=== PATIENT | female | born 1970 | race Hispanic/Latino ===

== ENCOUNTER → 2023-05-14 09:46 | Outpatient (REF) | payer OTHER, SELFPAY ==
[2023-05-14 11:04] LABS: ALT (SGPT) 57 U/L (0-35); AST (SGOT) 35 U/L (14-36); Albumin 4.3 g/dl (3.5-5.0); Alkaline Phosphatase 112 U/L (38-126); Blood Urea Nitrogen 15 mg/dl (7-17); Calcium 9.1 mg/dl (8.4-10.2); Carbon Dioxide 28 mmol/L (22-30); Chloride 104 mmol/L (98-107); GGTP 42 U/L (12-43); Glucose 99 mg/dl (70-99); HDL Cholesterol 47 mg/dl; LDL Cholesterol, Calculated 53 mg/dl; Potassium 4.2 mmol/L (3.5-5.1); Sodium 136 mmol/L (135-145); Total Bilirubin 0.6 mg/dl (0.2-1.3); Total Cholesterol 145 mg/dl (50-199); Total Protein 7.3 g/dl (6.3-8.2); Triglyceride 227 mg/dl (10-149); Very Low Density Lipoprotein 45 mg/dl (0-30); eGFR > 60.00
[2023-05-14 11:54] LABS: Microalbumin/creatinine Ratio 18.1 mg/g
[2023-05-14 12:13] LABS: Glycohemoglobin (HgbA1c) 6.6 % (4.0-5.6)
== END ==
LOC: REG 09:46
PROVIDERS: ATTENDING PHYSICIAN Nurse Practitioner Adult Health
DX: E11.9 Type 2 diabetes mellitus without complications (principal); K76.0 Fatty (change of) liver, not elsewhere classified; E78.2 Mixed hyperlipidemia; R80.9 Proteinuria, unspecified
CPT/HCPCS: 36415; 80053; 80061; 82043; 82570; 82977; 83036

== ENCOUNTER → 2023-06-10 11:14 | Outpatient (REF) | payer OTHER, SELFPAY | LOC: CLINIC 11:14 | PROVIDERS: ATTENDING PHYSICIAN Nurse Practitioner Adult Health; REFERRING PHYSICIAN Physician Assistant | DX: E04.1 Nontoxic single thyroid nodule (principal) | CPT/HCPCS: 76536 ==

== ENCOUNTER → 2023-08-13 09:10 | Outpatient (REF) | payer OTHER, SELFPAY ==
[2023-08-13 12:38] LABS: ALT (SGPT) 57 U/L (0-35); AST (SGOT) 32 U/L (14-36); Albumin 4.2 g/dl (3.5-5.0); Alkaline Phosphatase 101 U/L (38-126); Blood Urea Nitrogen 19 mg/dl (7-17); Calcium 9.3 mg/dl (8.4-10.2); Carbon Dioxide 25 mmol/L (22-30); Chloride 104 mmol/L (98-107); Glucose 107 mg/dl (70-99); Potassium 3.9 mmol/L (3.5-5.1); Sodium 139 mmol/L (135-145); Total Bilirubin 0.5 mg/dl (0.2-1.3); Total Protein 6.8 g/dl (6.3-8.2); eGFR > 60.00
== END ==
LOC: CLINIC 09:10
PROVIDERS: ATTENDING PHYSICIAN Nurse Practitioner Adult Health
DX: E11.9 Type 2 diabetes mellitus without complications (principal)
CPT/HCPCS: 36415; 80053

== ENCOUNTER → 2023-11-19 08:54 | Outpatient (REF) | payer OTHER, SELFPAY ==
[2023-11-19 10:35] LABS: Hematocrit 47.1 % (37.0-47.0); Hemoglobin 15.5 g/dL (12.0-16.0); Mean Corp Hgb Conc. 32.9 g/dL (33.0-37.0); Mean Corpuscular Hgb 28.3 pg (27.0-31.0); Mean Corpuscular Volume 86.1 fL (81.0-99.0); Mean Platelet Volume 11.2 fL (7.4-10.4); Platelet Count 163 10^3/uL (130-400); Red Blood Cell Count 5.47 10^6/uL (4.20-5.40); Red Cell Dist. Width 14.2 % (11.5-14.5); White Blood Cell Count 7.2 10^3/uL (4.8-10.8)
[2023-11-19 10:59] LABS: ALT (SGPT) 61 U/L (0-35); AST (SGOT) 34 U/L (14-36); Albumin 4.5 g/dl (3.5-5.0); Alkaline Phosphatase 115 U/L (38-126); Blood Urea Nitrogen 17 mg/dl (7-17); Calcium 9.5 mg/dl (8.4-10.2); Carbon Dioxide 27 mmol/L (22-30); Chloride 103 mmol/L (98-107); Glucose 107 mg/dl (70-99); HDL Cholesterol 46 mg/dl; LDL Cholesterol, Calculated 51 mg/dl; Potassium 4.5 mmol/L (3.5-5.1); Sodium 141 mmol/L (135-145); Total Bilirubin 0.5 mg/dl (0.2-1.3); Total Cholesterol 140 mg/dl (50-199); Total Protein 7.2 g/dl (6.3-8.2); Triglyceride 215 mg/dl (10-149); Very Low Density Lipoprotein 43 mg/dl (0-30); eGFR > 60.00
[2023-11-19 11:06] LABS: Microalbumin, Random Urine 0.7 mg/dl (0.6-1.7); Microalbumin/creatinine Ratio 8.8 mg/g
[2023-11-19 11:14] LABS: Vitamin D, 25-OH*** 33.7 ng/mL (30-80)
[2023-11-19 11:40] LABS: Glycohemoglobin (HgbA1c) 6.8 % (4.0-5.6)
[2023-11-19 11:47] LABS: Vitamin B12 568 pg/ml (239-931)
== END ==
LOC: REG 08:54
PROVIDERS: ATTENDING PHYSICIAN Nurse Practitioner Adult Health
DX: E11.9 Type 2 diabetes mellitus without complications (principal); E55.9 Vitamin D deficiency, unspecified; Z86.2 Personal history of diseases of the blood and blood-forming organs and certain disorders involving the immune mechanism; E78.2 Mixed hyperlipidemia; R80.9 Proteinuria, unspecified
CPT/HCPCS: 36415; 80053; 80061; 82043; 82306; 82570; 82607; 83036; 85027

== ENCOUNTER → 2024-03-16 07:37 | Outpatient (REF) | payer OTHER, SELFPAY ==
[2024-03-16 08:15] LABS: Hematocrit 45.9 % (37.0-47.0); Hemoglobin 14.8 g/dL (12.0-16.0); Mean Corp Hgb Conc. 32.2 g/dL (33.0-37.0); Mean Corpuscular Hgb 27.5 pg (27.0-31.0); Mean Corpuscular Volume 85.3 fL (81.0-99.0); Platelet Count 160 10^3/uL (130-400); Red Blood Cell Count 5.38 10^6/uL (4.20-5.40); Red Cell Dist. Width 14.4 % (11.5-14.5); White Blood Cell Count 8.1 10^3/uL (4.8-10.8)
[2024-03-16 09:05] LABS: ALT (SGPT) 49 U/L (0-35); AST (SGOT) 26 U/L (14-36); Albumin 4.2 g/dl (3.5-5.0); Alkaline Phosphatase 109 U/L (38-126); Blood Urea Nitrogen 16 mg/dl (7-17); Calcium 8.9 mg/dl (8.4-10.2); Carbon Dioxide 26 mmol/L (22-30); Chloride 103 mmol/L (98-107); Glucose 112 mg/dl (70-99); Potassium 4.1 mmol/L (3.5-5.1); Sodium 140 mmol/L (135-145); Total Bilirubin 0.4 mg/dl (0.2-1.3); Total Protein 6.8 g/dl (6.3-8.2); eGFR > 60.00
[2024-03-16 10:19] LABS: Glycohemoglobin (HgbA1c) 6.8 % (4.0-5.6)
== END ==
LOC: CLINIC 07:37
PROVIDERS: ATTENDING PHYSICIAN Nurse Practitioner Adult Health
DX: E11.9 Type 2 diabetes mellitus without complications (principal); Z86.2 Personal history of diseases of the blood and blood-forming organs and certain disorders involving the immune mechanism; R74.8 Abnormal levels of other serum enzymes; K76.0 Fatty (change of) liver, not elsewhere classified
CPT/HCPCS: 36415; 80053; 83036; 85027

== ENCOUNTER → 2024-05-11 11:23 | Outpatient (REF) | payer OTHER, SELFPAY | LOC: CLINIC 11:23 | PROVIDERS: ATTENDING PHYSICIAN Nurse Practitioner Adult Health | DX: E04.1 Nontoxic single thyroid nodule (principal) | CPT/HCPCS: 76536 ==

== ENCOUNTER → 2024-07-21 09:24 | Outpatient (REF) | payer OTHER, SELFPAY ==
[2024-07-21 10:49] LABS: Microalbumin, Random Urine 1.6 mg/dl (0.6-1.7)
[2024-07-21 10:54] LABS: Glycohemoglobin (HgbA1c) 6.6 % (4.0-5.6)
[2024-07-21 11:10] LABS: ALT (SGPT) 59 U/L (0-35); AST (SGOT) 35 U/L (14-36); Albumin 4.5 g/dl (3.5-5.0); Alkaline Phosphatase 113 U/L (38-126); Blood Urea Nitrogen 13 mg/dl (7-17); Calcium 8.9 mg/dl (8.4-10.2); Carbon Dioxide 25 mmol/L (22-30); Chloride 105 mmol/L (98-107); Glucose 117 mg/dl (70-99); Potassium 4.1 mmol/L (3.5-5.1); Sodium 141 mmol/L (135-145); Total Bilirubin 0.5 mg/dl (0.2-1.3); eGFR > 60.00
== END ==
LOC: REG 09:24
PROVIDERS: ATTENDING PHYSICIAN Nurse Practitioner Adult Health
DX: E11.9 Type 2 diabetes mellitus without complications (principal); R80.9 Proteinuria, unspecified; R73.03 Prediabetes
CPT/HCPCS: 36415; 80053; 82043; 82570; 83036

== ENCOUNTER → 2024-08-12 10:18 | Outpatient (REF) | payer OTHER, SELFPAY | LOC: CLINIC 10:18 | PROVIDERS: ATTENDING PHYSICIAN Nurse Practitioner Adult Health | DX: N95.0 Postmenopausal bleeding (principal) | CPT/HCPCS: 76830; 76856 ==

== ENCOUNTER → 2024-11-05 07:28 | Outpatient (REF) | payer OTHER, SELFPAY ==
[2024-11-05 08:46] LABS: Glycohemoglobin (HgbA1c) 7.3 % (4.0-5.6)
[2024-11-05 09:13] LABS: ALT (SGPT) 75 U/L (0-35); AST (SGOT) 42 U/L (14-36); Albumin 4.3 g/dl (3.5-5.0); Alkaline Phosphatase 110 U/L (38-126); Blood Urea Nitrogen 16 mg/dl (7-17); Calcium 8.9 mg/dl (8.4-10.2); Carbon Dioxide 21 mmol/L (22-30); Chloride 107 mmol/L (98-107); Glucose 145 mg/dl (70-99); HDL Cholesterol 40 mg/dl; LDL Cholesterol, Calculated 62 mg/dl; Potassium 4.0 mmol/L (3.5-5.1); Sodium 138 mmol/L (135-145); Total Protein 6.9 g/dl (6.3-8.2); Very Low Density Lipoprotein 50 mg/dl (0-30); eGFR > 60.00
[2024-11-05 09:28] LABS: Vitamin D, 25-OH*** 22.4 ng/mL (30-80)
== END ==
LOC: CLINIC 07:28
PROVIDERS: ATTENDING PHYSICIAN Nurse Practitioner Adult Health
DX: E11.9 Type 2 diabetes mellitus without complications (principal); E55.9 Vitamin D deficiency, unspecified; E78.2 Mixed hyperlipidemia
CPT/HCPCS: 36415; 80053; 80061; 82306; 83036

== ENCOUNTER → 2024-12-09 09:54 | Outpatient (REF) | payer OTHER, SELFPAY | LOC: CLINIC 09:54 | PROVIDERS: ATTENDING PHYSICIAN Obstetrics & Gynecology Gynecology | DX: N95.0 Postmenopausal bleeding (principal) | CPT/HCPCS: 87624; 88305 ==

== ENCOUNTER → 2025-02-10 10:26 | Outpatient (REF) | payer OTHER, SELFPAY ==
[2025-02-10 11:27] LABS: Hematocrit 46.4 % (37.0-47.0); Hemoglobin 15.2 g/dL (12.0-16.0); Mean Corp Hgb Conc. 32.8 g/dL (33.0-37.0); Mean Corpuscular Volume 84.2 fL (81.0-99.0); Platelet Count 173 10^3/uL (130-400); Red Cell Dist. Width 13.4 % (11.5-14.5)
[2025-02-10 11:56] LABS: ALT (SGPT) 38 U/L (0-35); AST (SGOT) 22 U/L (14-36); Albumin 4.8 g/dl (3.5-5.0); Alkaline Phosphatase 101 U/L (38-126); Blood Urea Nitrogen 16 mg/dl (7-17); Calcium 8.8 mg/dl (8.4-10.2); Carbon Dioxide 27 mmol/L (22-30); Chloride 103 mmol/L (98-107); Glucose 105 mg/dl (70-99); Potassium 4.1 mmol/L (3.5-5.1); Sodium 138 mmol/L (135-145); Total Protein 7.7 g/dl (6.3-8.2); eGFR > 60.00
[2025-02-10 12:03] LABS: Microalb - Urine Creatinine 51.000 mg/dl
[2025-02-10 12:06] LABS: Microalbumin, Random Urine 1.4 mg/dl (0.6-1.7)
[2025-02-10 12:14] LABS: Glycohemoglobin (HgbA1c) 6.7 % (4.0-5.9)
[2025-02-12 14:32] LABS: FIT-Fecal Occult Blood Interp Negative
== END ==
LOC: REG 10:26
PROVIDERS: ATTENDING PHYSICIAN Nurse Practitioner Adult Health
DX: E11.9 Type 2 diabetes mellitus without complications (principal); Z86.2 Personal history of diseases of the blood and blood-forming organs and certain disorders involving the immune mechanism; Z12.11 Encounter for screening for malignant neoplasm of colon; R80.9 Proteinuria, unspecified
CPT/HCPCS: 36415; 80053; 82043; 82570; 83036; 83520; 85027